=== PATIENT | male | born 1960 | race Caucasian/White ===

== ENCOUNTER 2019-02-18 10:27 | Outpatient (CLI) | payer OTHER, SELFPAY ==
--- NOTE | 2019-02-18 10:30 | DI.RAD_ITS ---
SYMPTOMS/DIAGNOSIS: FEVER OF UNKNOWN ORIGIN, R50.9 PA AND LATERAL CHEST: There are no prior comparison exams. The cardiac and mediastinal contours have a normal appearance. The lungs are well inflated and clear. No mass, infiltrate or effusion is seen. There are no visible emphysematous or fibrotic changes. IMPRESSION: Negative chest x-ray.
[2019-02-18 11:02] LABS: Abs Immature Grans 0.63 k/cumm (0.0-0.09); HCT 45.1 % (40.0-50.0); HGB 15.8 g/dL (13.5-17.5); Mean Corpuscular Hemoglobin 29.1 pg (27.0-33.0); Mean Corpuscular Volume 83.1 fL (80-95); Mean Platelet Volume 9.1 fL (8.0-11.0); Platelet Count 326 x1000/uL (130-400); RBC 5.43 m/cumm (4.50-6.00); RBC Distribution Width 12.6 % (11.8-14.1); White Blood Cell Count 8.09 k/cumm (4.4-10.8)
[2019-02-18 11:39] LABS: Absolute Lymphocyte Count 1.38 k/cumm (1.2-3.4); Absolute Neutrophil Count 5.82 k/cumm (1.2-6.7); Atypical Lymphocytes % 3
[2019-02-18 11:40] LABS: Diff Comment Manual Differential; RBC Morphology Normal
[2019-02-18 11:58] LABS: ALT 109 U/L (12-78); AST 14 U/L (15-37); Albumin 3.5 g/dL (3.4-5.0); Alkaline Phosphatase 103 U/L (46-116); Anion Gap 12.3 mmol/L (3-11); BUN 29 mg/dL (7-18); Bilirubin, Total 0.4 mg/dL (0.2-1.0); C-Reactive Protein 0.39 mg/dL (0.0-0.3); CO2 22.7 mmol/L (21.0-32.0); CREATININE 1.27 mg/dL (0.70-1.30); Chloride 107 mmol/L (98-107); Estimated GFR 57.85 (mL/min/1.73m2); Glucose 125 mg/dL (70-100); Potassium 4.7 mmol/L (3.5-5.1); Sodium 142 mmol/L (136-145); Total Protein 7.6 g/dL (6.4-8.2)
[2019-02-19 10:36] LABS: Lyme Ab w Rflx to Lyme Confirm Positive
[2019-02-19 15:17] LABS: Angiotensin Converting Enzyme 17 U/L (16 - 85)
[2019-02-20 12:00] LABS: HIV-1/2 Ag & Ab Screen Negative (NEGAT)
[2019-02-21 13:21] LABS: IgG Immunoblot Negative; IgM Immunoblot Positive; Immunoblot Interpretation SEE COMMENTS
== END 2019-02-18 10:47 ==
PROVIDERS: PCP Emergency Medicine; Visit Provider Emergency Medicine
DX: R50.9 Fever, unspecified (principal); M25.50 Pain in unspecified joint; Z11.4 Encounter for screening for human immunodeficiency virus [HIV]; Z01.84 Encounter for antibody response examination
CPT/HCPCS: 36415; 80053; 82164; 86617; 87389; 71046; 85025; 86140; 86618; 86787

== ENCOUNTER 2019-08-20 11:56 | Outpatient (CLI) | payer OTHER, SELFPAY ==
[2019-08-20 13:23] LABS: Calculated LDL 131 mg/dL (<100); Cholesterol 204 mg/dL (<200); HDL Cholesterol 45 mg/dL (40-60); Triglyceride 142 mg/dL (<150)
[2019-08-20 13:32] LABS: C-Reactive Protein 0.18 mg/dL (0.0-0.3)
[2019-08-21 14:33] LABS: PSA, Screening 0.6 ng/mL (0.0-4.5)
== END 2019-08-20 12:16 ==
PROVIDERS: PCP Emergency Medicine; Visit Provider Emergency Medicine
DX: Z00.00 Encounter for general adult medical examination without abnormal findings (principal); Z13.220 Encounter for screening for lipoid disorders; Z12.5 Encounter for screening for malignant neoplasm of prostate
CPT/HCPCS: 36415; 80061; 84153; 86140

== ENCOUNTER 2019-12-16 08:09 | Outpatient (CLI) | payer OTHER, SELFPAY ==
[2019-12-17 03:37] LABS: COVID-19 RT-PCR UVMMC Result Negative (Negative)
== END 2019-12-16 08:29 ==
PROVIDERS: PCP Emergency Medicine; Visit Provider Surgery
DX: Z11.59 Encounter for screening for other viral diseases (principal); Z01.818 Encounter for other preprocedural examination
CPT/HCPCS: U0003

== ENCOUNTER 2019-12-19 07:43 | Day surgery (SDC) | payer OTHER, SELFPAY ==
[2019-12-19 07:54] VITALS: BP 110/82; PULSE 62; RESP 18; TEMP 36.3; O2SAT 98
[2019-12-19] MEDS: Lactated Ringers 1,000 ML 80 ML IV (08:10)
--- NOTE | 2019-12-19 08:52 | W.PM.DSUDISC ---
Discharge Plan Disposition Patient Disposition: HOME Condition: Good Discharge Details Reason For Visit: Colonoscopy Attending Provider: Gabrielle Angel Primary Care Provider: Raul Gatica Home Meds and New Rx's Prescriptions: Continued ibuprofen 600 mg tablet 600 mg PO Q8H PRNRF: 0 Discontinued polyethylene glycol 3350 17 gram/dose powder 238 g PO ONCE Qty: 238 RF: 0 bisacodyl [Dulcolax (bisacodyl)] 5 mg tablet,delayed release (DR/EC) 5 mg PO ONCE Qty: 4 RF: 0 Discharge Instructions Additional Instructions: Findings: Your colonoscopy was normal. Follow up: Plan for routine screening in 10 years or sooner if symptoms indicate. Please call if you develop: fevers >101.5 Nausea or Vomiting Abdominal pain that is not transient DAY SURGERY UNIT POST COLONOSCOPY INSTRUCTIONS 1. Because there will be medication in your system for the next 24 hours, you may feel a little sleepy. Your coordination will be affected. Therefore: a. Do not drive or operate dangerous equipment for 24 hours. b. Do not drink alcohol beverages for 24 hours (not even beer). c. Plan to go home and rest for the day. 2. Generally there are no restrictions on your activity after a day or so has gone by, but you may feel a bit fatigued for a few days. 3 After you arrive home you may have a light meal and return to a normal diet as you can tolerate it without feeling sick to your stomach. 4. After surgery, you may feel pain or discomfort. This should be only transient, but if it persists please contact your doctor. 5. If there are any questions regarding the findings of your procedure, please feel free to contact your doctor. 6. If you are unable to contact your doctor with a problem, contact the hospital at [phone]. 7. Continue all your regular medications unless directed otherwise. I understand the above instructions and have no questions. Signature of Patient or Responsible Adult Escort Date/Time Name of Responsible Adult Escort Signature of Nurse Date/Time Activity:: Activity as Tolerated Diet:: As Tolerated Discharge Orders Discharge Orders: Discharge Order (Routine); Ordered 12/19/19 Ordered By: Gabrielle Angel DS: Diagnosis Discharge Diagnosis (1) Encounter for screening colonoscopy: Status: Acute
--- NOTE | 2019-12-19 08:53 | W.COLOREPORT ---
Date of service: 12/19/19 Time of Service: 09:38 Colonoscopy Report Date of procedure: 12/19/19 Pre-op diagnosis general: Screening Post-op diagnosis procedure note: other (Normal colon) Procedure: Colonoscopy Surgeon: Gabrielle Angel Anesthesia proc note operative: MAC Disposition: same day Indications: This patient presents for routine colon screening. His last colonoscopy about 14 years ago was normal. No symptoms or FH colon cancer. Procedure Description: The patient was placed in the left Calvo position. Propofol was titrated to sedation. Digital rectal examination revealed no abnormalities. The scope was advanced to the cecum without difficulty. The ileocecal valve and appendiceal orifice were clearly identified. The prep was good. The scope was slowly withdrawn over the course of greater than 6 minutes with no abnormalities seen in the ascending, transverse, descending, sigmoid colon or rectum including on retroflexed view. The patient tolerated the procedure well and was stable to recovery. Plan for routine screening colonoscopy in 10 years or sooner if symptoms indicate.
[2019-12-19 10:10] VITALS: BP 102/63; PULSE 53; RESP 16; TEMP 36.5; O2SAT 96
== END 2019-12-19 10:25 | disposition home or self-care (01) ==
PROVIDERS: PCP Emergency Medicine; Visit Provider Surgery
PROC: 0DJD8ZZ Inspection of Lower Intestinal Tract, Via Natural or Artificial Opening Endoscopic (ICD-10-PCS; CPT 45378; principal; 2019-12-19 09:00)
DX: Z12.11 Encounter for screening for malignant neoplasm of colon (principal)
CPT/HCPCS: 45378; J2704

== ENCOUNTER 2020-02-05 00:33 | Outpatient (CLI) | payer OTHER, SELFPAY ==
--- NOTE | 2020-02-05 07:00 | DI.RAD_ITS ---
EXAM: XR THUMB RT CLINICAL HISTORY: thumb pain,M79.644. TECHNIQUE: 2D digital imaging was performed. COMPARISON: CR LEFT THUMB from 02/25/2014 FINDINGS: BONES: No acute fracture is present. No bony destructive lesion is seen. JOINTS: There is mild joint space narrowing of the MCP joint. Small marginal osteophytes are seen at the 1st CMC joint. There is no dislocation. SOFT TISSUE: Normal. IMPRESSION: Mild arthritic changes seen in the right thumb. No acute abnormality. DATA REPOSITORY: RADIATION DOSE DELIVERED:
== END 2020-02-05 00:53 ==
PROVIDERS: PCP Emergency Medicine; Visit Provider Emergency Medicine
DX: M79.644 Pain in right finger(s) (principal); M18.9 Osteoarthritis of first carpometacarpal joint, unspecified
CPT/HCPCS: 73140

== ENCOUNTER 2021-03-15 09:54 | Outpatient (CLI) | payer OTHER, SELFPAY ==
--- NOTE | 2021-03-15 09:45 | RT.EKG_ITS ---
APPROVED REPORT Exam: Resting ECG Reason for Exam: syncope Patient Location: O HR:63 bpm ECG Measurements Heart Rate 63 AXIS CO 168 P 70 QRSd 88 QRS 34 QT 396 T 43 QTc 406 Conclusion Sinus rhythm...normal P axis, V-rate 50- 99
== END 2021-03-15 09:55 | disposition home or self-care (01) ==
LOC: DI.CARD 09:55
PROVIDERS: PCP Emergency Medicine; Visit Provider Internal Medicine Cardiovascular Disease
DX: R55 Syncope and collapse (principal)
CPT/HCPCS: 93010

== ENCOUNTER 2021-04-13 02:00 | Outpatient (CLI) | payer OTHER, SELFPAY ==
--- NOTE | 2021-04-13 10:23 | DI.US_ITS ---
APPROVED REPORT EXAM: Comprehensive 2D, Doppler, and color-flow Echocardiogram Patient Location: Out-Patient Lift Electrician: Umm Calero RDCS (AE) Indications: Syncope, congestive heart failure Other Information Study Quality: Good Conclusion Normal left ventricular wall thickness and chamber size. Estimated ejection fraction is 60%. There are no segmental wall motion abnormalities Normal right ventricular size and systolic function Both atria are normal in size The aortic valve is trileaflet and minimally sclerotic with mild regurgitation Normal mitral valve, trace to mild regurgitation Normal tricuspid valve, trace regurgitation. Unable to estimate right ventricular systolic pressure Normal pulmonic valve, trace regurgitation Wall motion Left Ventricle The left ventricle is normal size. The left ventricular systolic function is normal. The left ventric ular ejection fraction is within the normal range. There is normal left ventricular wall thickness. T here is normal LV segmental wall motion. Left ventricular filling pattern is normal for age. There is no ventricular septal defect visualized. LVEF is 60%. Right Ventricle The right ventricle is normal size. The right ventricular systolic function is normal. Atria The left atrium size is normal. The right atrium size is normal. The interatrial septum is intact wit h no evidence for an atrial septal defect. Aortic Valve The Aortic valve is minimally sclerotic. Aortic valve is trileaflet. There is no aortic valvular sten osis. Mild aortic regurgitation. Mitral Valve The mitral valve is normal in structure. No evidence of mitral valve stenosis. Trace to mild mitral r egurgitation. Tricuspid Valve The tricuspid valve is normal in structure. There is no tricuspid valve stenosis. Trace tricuspid reg urgitation. Unable to assess PA pressure. Pulmonic Valve The pulmonary valve is normal in structure. There is no pulmonic valvular stenosis. Trace pulmonic re gurgitation. Great Vessels The aortic root is normal in size. The ascending aorta is normal in size. Aortic arch is normal in ca liber. IVC is normal in size and collapses >50% with inspiration. Pericardium There is no pericardial effusion. 2D Dimensions IVSD d PLAX 0.79 cm M: 0.6-1.2 LV Vol A2C d MOD 124.6 mL LVPW d PLAX 0.78 cm M: 0.6 - 1.2 LV Vol A4C d MOD 104.2 mL LVID d PLAX 4.95 cm M: 4.2 - 5.8 LA vol/ BSA A2C s A-L 28.3 mL/m2 LVDs 3.40 cm M: 2.5 - 4.0 LA vol/ BSA A4C s A-L 18.1 mL/m2 Ao Root d 3.08 cm M: 3.1 - 3.7 LA Vol/ BSA Biplane s A-L 23.8 mL/m2 RA Area A4C 14.05 cm2 LA Area A4C s MOD 14.88 cm2 RA Vol/ BSA A4C s A-L 16.1 mL/m2 LA Area A2C s MOD 17.72 cm2 Ao Asc Diam d 3.16 cm M: 2.6 - 3.4 LV EF A4C MOD 59.7 % LV EF Teichholz 58.3 % LV EF A2C MOD 60.1 % LVEF (De La Cruz's) 60.36 % M: 52 - 72 LV EF Biplane MOD 60.4 % LV Volume 88.17 mL M: 62 - 150 SV 69.96 mL LV Volume Index 46.16 mL/m2 M: 34 - 74 SV Index 36.47 mL/m2 LV Vol Biplane MOD 115.9 mL FS 30.85 % M-Mode TAPSE 2.91 cm (M/F) >1.7 LV Diastology MV E' medial 0.100 (>0.07 m/s) E/A Ratio 0.7 LV E/e MED 4.20 (<14) MV E Vmax 0.43 (0.4-1.3 m/s) MV E' lateral 0.095 (>0.1 m/s) MV A Vmax 0.60 (0.4-1.3 m/s) LV E/e LAT 4.45 (<14) MV E/A Ratio 0.69 MV E/E' medial 4.25 MV E/E' lateral 4.47 Aortic Valve LVOT Area 2.76 cm2 AoV Area Vmax 1.89 cm2 LVOT Vmax 1.03 m/s AoV Area/ BSA (Vmax) 0.98 cm2/m2 LVOT Mean Ab. 0.76 m/s DARREL Mean Ab. 1.92 cm2 LVOT Peak Grad 4.2 mmHg DARREL Mean Ab. Index 1.00 cm2/m2 LVOT Mean Grad 2.5 mmHg AR DT 2846 msec LVOT VTI 0.226 m AR PHT 825 msec LVOT Diam s 1.85 cm AoV Vmax 1.50 m/s Velocity Ratio 0.68 AoV Mean Ab. 1.09 m/s AoV Peak Grad 9.0 mmHg LVOT SV 62.35 mL AoV Mean Grad 5.2 mmHg AoV VTI 0.319 m AoV Area VTI 1.95 cm2 AoV Area/ BSA (VTI) 1.02 cm/m2 Mitral Valve MV DT 282 (160-240 msec) MV PHT 82 msec MV Area PHT 2.69 cm2 MV VTI 0.362 m MV Area VTI 1.72 (4.0-6.0 cm2) Pulmonary Valve PV Vmax 0.75 (0.5-1.5 m/s) RVOT Peak Gr. 2.08 mmHg PV Peak Grad 2.3 mmHg RVOT Mean Gr. 1.05 mmHg PV Mean Grad 1.3 mmHg RVOT VTI 0.141 m PV VTI 0.146 m RVOT Vmax 0.72 m/s
== END 2021-04-13 02:20 ==
PROVIDERS: PCP Emergency Medicine; Visit Provider Emergency Medicine
DX: I50.9 Heart failure, unspecified (principal); R55 Syncope and collapse; I08.0 Rheumatic disorders of both mitral and aortic valves
CPT/HCPCS: 93306

== ENCOUNTER 2021-05-13 03:27 | Outpatient (CLI) | payer OTHER, SELFPAY ==
[2021-05-13 10:08] LABS: Abs Immature Grans 0.02 10^3/uL (0.0-0.06); Absolute Basophil Count 0.03 10^3/uL (0.0-0.2); Absolute Eosinophil Count 0.31 10^3/uL (0.0-0.7); Absolute Lymphocyte Count 1.48 10^3/uL (1.2-3.4); Absolute Monocyte Count 0.49 10^3/uL (0.1-0.8); Absolute Neutrophil Count 3.26 10^3/uL (1.2-6.7); Basophils % 0.5; Eosinophils % 5.5; HCT 49.7 % (40.0-50.0); HGB 16.7 g/dL (13.5-17.5); Immature Grans % 0.4; Lymphocytes % 26.5; MCHC 33.6 % (32.0-36.0); MCV 86.3 fL (80-95); MPV 8.6 fL (8.0-11.0); Monocytes % 8.8; Neutrophils % 58.3; Nucleated RBC 0 %; Platelet Count 220 10^3/uL (130-400); RBC 5.76 10^6/uL (4.36-5.78); RDW 11.7 % (11.8-14.1); RDW-SD 36.7 fL; WBC 5.59 10^3/uL (4.4-10.8)
[2021-05-13 11:13] LABS: ALT 27 U/L (16-63); AST 12 U/L (15-37); Albumin 4.2 g/dL (3.4-5.0); Alkaline Phosphatase 59 U/L (46-116); Anion Gap 6.6 mmol/L (3-11); BUN 27 mg/dL (7-18); Bilirubin, Total 0.6 mg/dL (0.2-1.0); CO2 30.4 mmol/L (21.0-32.0); CREATININE 1.4 mg/dL (0.70-1.30); Calcium 9.3 mg/dL (8.5-10.1); Calculated LDL 174 mg/dL (<100); Chloride 106 mmol/L (98-107); Cholesterol 248 mg/dL (<200); Estimated GFR 51.35 (mL/min/1.73m2); Glucose 101 mg/dL (74-106); HDL Cholesterol 53 mg/dL (40-60); Potassium 4.7 mmol/L (3.5-5.1); Sodium 143 mmol/L (136-145); TSH 1.26 uIU/mL (0.36-3.74); Total Protein 7.4 g/dL (6.4-8.2); Triglyceride 109 mg/dL (<150)
[2021-05-13 11:22] LABS: C-Reactive Protein 0.13 mg/dL (0.0-0.3)
[2021-05-13 18:18] LABS: PSA, Screening 0.6 ng/mL (0.0-4.5)
== END 2021-05-13 03:28 | disposition home or self-care (01) ==
LOC: LBO 03:27
PROVIDERS: PCP Emergency Medicine; Visit Provider Emergency Medicine
DX: E03.9 Hypothyroidism, unspecified; R55 Syncope and collapse; Z12.5 Encounter for screening for malignant neoplasm of prostate
CPT/HCPCS: 36415; 80053; 80061; 84153; 84443; 85025; 86140

== ENCOUNTER 2021-06-30 15:33 | Outpatient (REF) | payer OTHER, SELFPAY ==
[2021-06-30 20:08] LABS: Anion Gap 8.8 mmol/L (3-11); BUN 26 mg/dL (7-18); CO2 27.2 mmol/L (21.0-32.0); CREATININE 1.3 mg/dL (0.70-1.30); Calcium 8.9 mg/dL (8.5-10.1); Calculated LDL 134 mg/dL (<100); Chloride 106 mmol/L (98-107); Cholesterol 233 mg/dL (<200); Estimated GFR 55.94 (mL/min/1.73m2); Glucose 94 mg/dL (74-106); HDL Cholesterol 48 mg/dL (40-60); Potassium 4.1 mmol/L (3.5-5.1); Sodium 142 mmol/L (136-145); Triglyceride 255 mg/dL (<150)
== END 2021-06-30 15:34 | disposition home or self-care (01) ==
LOC: LBN 15:33
PROVIDERS: PCP Emergency Medicine; Visit Provider Emergency Medicine
DX: E78.5 Hyperlipidemia, unspecified (principal); I10 Essential (primary) hypertension; R79.89 Other specified abnormal findings of blood chemistry
CPT/HCPCS: 80048; 80061